=== PATIENT | male | born 1960 | race Caucasian/White ===

== ENCOUNTER → 2016-05-12 | Outpatient (CLI) | payer BC ==
[~2016-05-12] VITALS: Ht 175.3 cm; Wt 84.1 kg
[~2016-05-12] MED LIST: ALEVE 220MG220 MG PO; CLARITIN 1010 MG/TAB PO; DOXYCYCLINE HY100 MG PO; L-LYSINE500 M1; NATURAL POTASS595 MG PO; PRILOSEC 20MG20 MG PO; ZESTRIL 20MG TA20 MG PO; ZOCOR 20MG20 MG PO
[2016-05-12 13:14] VITALS: BP 158/85; PULSE 75
[2016-05-12 14:10] VITALS: BP 152/88; PULSE 73
[2016-05-12 14:20] VITALS: BP 160/88; PULSE 77
[2016-05-12 14:30] VITALS: BP 161/109; PULSE 78
[2016-05-12 14:45] VITALS: BP 160/98; PULSE 77
== END ==
LOC: COL.RAD 12:30
DX: D48.0 Neoplasm of uncertain behavior of bone and articular cartilage (principal)
CPT/HCPCS: 25757